=== PATIENT | male | born 1950 | race Caucasian/White ===

== ENCOUNTER 2024-04-05 14:50 | Inpatient (IN) | payer MEDICARE ==
[~2024-04-05] VITALS: Ht 190.5 cm; Wt 107.0 kg
[2024-04-05 15:35] LABS: BASOPHILS % (AUTO) 0.8 % (0.0-2.0); EOSINOPHILS # (AUTO) 0.2 K/uL (0.0-0.7); EOSINOPHILS % (AUTO) 4.1 % (0.0-6.0); HEMATOCRIT 31 % (39-51); HEMOGLOBIN 9.7 g/dL (13.5-17.5); LYMPHOCYTES # (AUTO) 0.5 K/uL (0.8-4.8); LYMPHOCYTES % (AUTO) 8.5 % (20.0-44.0); MEAN CORPUSCULAR HEMOGLOBIN 33 PG (26.0-33.0); MEAN CORPUSCULAR HGB CONC 32 g/dl (31.0-36.0); MEAN CORPUSCULAR VOLUME 104 fL (80-96); MONOCYTES # (AUTO) 0.6 K/uL (0.1-1.30); MONOCYTES % (AUTO) 11.3 % (2.0-12.0); NEUTROPHILS # (AUTO) 4.2 K/uL (1.8-8.9); NEUTROPHILS % (AUTO) 75.3 % (43.0-81.0); PLATELET COUNT (AUTO) 130 K/uL (150-450); RED BLOOD CELL COUNT(AUTO) 2.94 MIL/uL (4.5-6.0); WHITE BLOOD COUNT (AUTO) 5.5 K/uL (4.3-11.0)
[2024-04-05] MEDS ORDERED: GABA-532 PO (15:41)
[2024-04-05] MEDS ORDERED: LEVE100023 PO (15:41)
[2024-04-05] MEDS ORDERED: PANT40TA2 PO (15:41)
[2024-04-05] MEDS ORDERED: ASPI-1169 PO (15:41)
[2024-04-05] MEDS ORDERED: ESCI10TA PO (15:41)
[2024-04-05] MEDS ORDERED: GABA300C PO (15:41)
[2024-04-05] MEDS ORDERED: ACET-868 PO (15:41)
[2024-04-05] MEDS ORDERED: CLOP75TA15 PO (15:41)
[2024-04-05] MEDS ORDERED: FINA5TAB11 PO (15:41)
[2024-04-05] MEDS ORDERED: TAMS-12 PO (15:41)
[2024-04-05] MEDS ORDERED: ATOR80TA PO (15:41)
[2024-04-05] MEDS ORDERED: IRBE300T19 PO (15:41)
[2024-04-05 15:42] LABS: CALCIUM, SERUM 8.2 mg/dL (8.5-10.1); CARBON DIOXIDE 19 mmol/L (21-32); CHLORIDE 107 mmol/L (98-107); CREATININE 4.3 mg/dL (0.6-1.3); GLUCOSE 129 mg/dL (74-106); POTASSIUM 5.1 mmol/L (3.5-5.1); SODIUM SERUM 139 mmol/L (136-145); UREA NITROGEN, BLOOD 52 mg/dL (7-18)
[2024-04-05 15:43] LABS: SERUM AMMONIA 24 umol/L (11-32)
[2024-04-05 15:57] LABS: ALANINE AMINOTRANSFERASE 343 U/L (12-78); ALBUMIN 2.5 g/dL (3.4-5.0); ASPARTATE AMINOTRANSFERASE 807 U/L (15-37); BILIRUBIN,DIRECT 2.3 mg/dL (0.0-0.2); BILIRUBIN,TOTAL 2.9 mg/dL (0.2-1.0); TOTAL PROTEIN, SERUM 7.5 g/dL (6.4-8.2)
[2024-04-05 15:59] LABS: ALKALINE PHOSPHATASE 1813 U/L (46-116)
[2024-04-05] MEDS ORDERED: ONDANSETRON HCL/PF 4 MG/2 ML VIAL IVP PRN (23:30)
[2024-04-05] MEDS ORDERED: Z GUARD REMEDY 4 OZ OINT TP PRN (23:30)
[2024-04-05] MEDS ORDERED: ACETAMINOPHEN 325 MG TABLET PO PRN (23:30)
[2024-04-05] MEDS ORDERED: MAG HYDROX/AL HYDROX/SIMETH 30 ML UDC PO PRN (23:30)
[2024-04-05] MEDS ORDERED: MAGNESIUM HYDROXIDE 30 ML UDC PO PRN (23:30)
[2024-04-06 00:32] LABS: APPEARANCE,URINE CLEAR (CLEAR); BILIRUBIN,URINE NEGATIVE (NEGATIVE); BLOOD, URINE 3+ Ery/uL (NEGATIVE); COLOR,URINE YELLOW (YELLOW); KETONES,URINE NEGATIVE (NEGATIVE); LEUKOCYTE ESTERASE ,URINE NEGATIVE (NEGATIVE); NITRITE, URINE NEGATIVE (NEGATIVE); PROTEIN,URINE 2+ mg/dl (NEGATIVE); UGLUCOSE 1+ mg/dL (NEGATIVE)
[2024-04-06 00:59] LABS: ADD URINE CULTURE NO; BACTERIA,URINE None seen /HPF (None Seen); MUCUS,URINE Few /LPF (None Seen); RBC,URINE NONE SEEN /HPF (0-2); SQUAMOUS EPITHELIAL CELL,UR None Seen /HPF (None Seen); WBC,URINE NONE SEEN /HPF (0-3)
[2024-04-06 01:00] VITALS: BP 132/58; TEMP 98.6; O2SAT 96; O2SAT 97
[2024-04-06] MEDS: LEVETIRACETAM (500MG) 1,000 MG in IV NS 0.9% 90 ML IV ONE (01:05)
[2024-04-06] MEDS ORDERED: LEVETIRACETAM (500MG) 500 MG/5 ML VIAL IV ONE (01:52)
[2024-04-06 06:00] VITALS: BP 112/63; TEMP 97.8; O2SAT 97
[2024-04-06 06:34] LABS: BASOPHILS % (AUTO) 0.4 % (0.0-2.0); EOSINOPHILS # (AUTO) 0.2 K/uL (0.0-0.7); EOSINOPHILS % (AUTO) 3.2 % (0.0-6.0); HEMATOCRIT 30 % (39-51); HEMOGLOBIN 9.1 g/dL (13.5-17.5); LYMPHOCYTES # (AUTO) 0.5 K/uL (0.8-4.8); LYMPHOCYTES % (AUTO) 7.8 % (20.0-44.0); MEAN CORPUSCULAR HEMOGLOBIN 33 PG (26.0-33.0); MEAN CORPUSCULAR HGB CONC 30 g/dl (31.0-36.0); MEAN CORPUSCULAR VOLUME 107 fL (80-96); MONOCYTES # (AUTO) 0.8 K/uL (0.1-1.30); MONOCYTES % (AUTO) 13.5 % (2.0-12.0); NEUTROPHILS # (AUTO) 4.5 K/uL (1.8-8.9); NEUTROPHILS % (AUTO) 75.1 % (43.0-81.0); PLATELET COUNT (AUTO) 131 K/uL (150-450); RED BLOOD CELL COUNT(AUTO) 2.79 MIL/uL (4.5-6.0); RED CELL DISTRIBUTION WIDTH 18.6 % (11.5-15.0); WHITE BLOOD COUNT (AUTO) 5.9 K/uL (4.3-11.0)
[2024-04-06 07:36] LABS: ALANINE AMINOTRANSFERASE 307 U/L (12-78); ALBUMIN 2.3 g/dL (3.4-5.0); ASPARTATE AMINOTRANSFERASE 770 U/L (15-37); BILIRUBIN,TOTAL 3.5 mg/dL (0.2-1.0); CALCIUM, SERUM 8.3 mg/dL (8.5-10.1); CARBON DIOXIDE 14 mmol/L (21-32); CHLORIDE 109 mmol/L (98-107); CREATININE 4.6 mg/dL (0.6-1.3); GLUCOSE 93 mg/dL (74-106); MAGNESIUM 2.6 mg/dL (1.8-2.4); PHOSPHORUS 6.6 mg/dL (2.5-4.9); SODIUM SERUM 138 mmol/L (136-145); TOTAL PROTEIN, SERUM 6.6 g/dL (6.4-8.2); UREA NITROGEN, BLOOD 62 mg/dL (7-18)
[2024-04-06 08:13] LABS: ALKALINE PHOSPHATASE 1844 U/L (46-116)
[2024-04-06 08:30] VITALS: BP 110/51; TEMP 97.9; O2SAT 97
[2024-04-06] MEDS: PANTOPRAZOLE 40 MG VIAL IV SCH (08:40)
[2024-04-06] MEDS: LEVETIRACETAM (500MG) 1,000 MG in IV NS 0.9% 90 ML IV SCH (08:48)
[2024-04-06] MEDS: Sodium Bicarbonate 100 MEQ in IV D5W 1,000 ML IV SCH (09:50)
[2024-04-06] MEDS: SEVELAMER CARBONATE 800 MG TABLET PO SCH (13:00)
[2024-04-06 16:00] VITALS: BP 116/61; TEMP 97.7; O2SAT 97
[2024-04-06 20:30] VITALS: BP 133/58; TEMP 98.2; O2SAT 93
== END 2024-04-06 20:58 | disposition short-term general hospital (02) | DRG 811 ==
LOC: ER 15:10 → MED 17:13
PROVIDERS: ATTEND Internal Medicine
DX: D53.9 Nutritional anemia, unspecified (principal); E43 Unspecified severe protein-calorie malnutrition; E87.20 Acidosis, unspecified; K80.51 Calculus of bile duct without cholangitis or cholecystitis with obstruction; N17.9 Acute kidney failure, unspecified; E11.40 Type 2 diabetes mellitus with diabetic neuropathy, unspecified; E11.22 Type 2 diabetes mellitus with diabetic chronic kidney disease; I12.9 Hypertensive chronic kidney disease with stage 1 through stage 4 chronic kidney disease, or unspecified chronic kidney disease; N18.9 Chronic kidney disease, unspecified; Z90.5 Acquired absence of kidney; Z90.49 Acquired absence of other specified parts of digestive tract; Z89.611 Acquired absence of right leg above knee; Z86.73 Personal history of transient ischemic attack (TIA), and cerebral infarction without residual deficits; Z91.040 Latex allergy status; Z79.899 Other long term (current) drug therapy; Z79.02 Long term (current) use of antithrombotics/antiplatelets; Z79.4 Long term (current) use of insulin; Z79.82 Long term (current) use of aspirin; D69.6 Thrombocytopenia, unspecified; E78.5 Hyperlipidemia, unspecified; E80.6 Other disorders of bilirubin metabolism; E88.09 Other disorders of plasma-protein metabolism, not elsewhere classified; M89.8X9 Other specified disorders of bone, unspecified site; G40.909 Epilepsy, unspecified, not intractable, without status epilepticus; E66.9 Obesity, unspecified; Z68.29 Body mass index [BMI] 29.0-29.9, adult; N40.0 Benign prostatic hyperplasia without lower urinary tract symptoms; E86.9 Volume depletion, unspecified; K76.0 Fatty (change of) liver, not elsewhere classified; R74.01 Elevation of levels of liver transaminase levels
CPT/HCPCS: 36415; 70450-TC; 71045-TC; 74181-TC; 76705-TC; 76770-TC; 80048-TC; 80053-TC; 80076-TC; 81001; 82140-TC; 83735-TC; 84100-TC; 85025-TC; 87081-TC; A4223; G0378; J1953; J2470; J7030; J7050; J7070

== ENCOUNTER 2024-10-08 12:08 | Inpatient (IN) | payer MEDICARE ==
[~2024-10-08] VITALS: Ht 188 cm; Wt 106.1 kg
[~2024-10-08 12:08] MED LIST: ACET-868 PO; ASPI-1169 PO; ATOR80TA PO; CLOP75TA15 PO; ESCI10TA PO; FINA5TAB11 PO; GABA-532 PO; GABA300C PO; IRBE300T19 PO; LEVE100023 PO; PANT40TA2 PO; TAMS-12 PO
[2024-10-08] MEDS ORDERED: ONDANSETRON HCL/PF 4 MG/2 ML VIAL IVP PRN (12:30)
[2024-10-08] MEDS ORDERED: hydrALAZINE HCL IV 20 MG VIAL IV PRN (12:30)
[2024-10-08] MEDS ORDERED: ALBUTEROL FS 2.5 MG/0.5 ML VIAL.NEB NEB PRN (12:30)
[2024-10-08 12:51] LABS: BASOPHILS # (AUTO) 0.1 K/uL (0.0-0.2); BASOPHILS % (AUTO) 0.6 % (0.0-2.0); EOSINOPHILS # (AUTO) 0.2 K/uL (0.0-0.7); EOSINOPHILS % (AUTO) 2.4 % (0.0-6.0); HEMATOCRIT 31 % (39-51); HEMOGLOBIN 10.6 g/dL (13.5-17.5); LYMPHOCYTES # (AUTO) 0.6 K/uL (0.8-4.8); MEAN CORPUSCULAR HEMOGLOBIN 35 PG (26.0-33.0); MEAN CORPUSCULAR HGB CONC 35 g/dl (31.0-36.0); MEAN CORPUSCULAR VOLUME 102 fL (80-96); MONOCYTES # (AUTO) 0.8 K/uL (0.1-1.30); MONOCYTES % (AUTO) 10.6 % (2.0-12.0); NEUTROPHILS # (AUTO) 6.1 K/uL (1.8-8.9); NEUTROPHILS % (AUTO) 78.4 % (43.0-81.0); PLATELET COUNT (AUTO) 177 K/uL (150-450); RED BLOOD CELL COUNT(AUTO) 3.02 MIL/uL (4.5-6.0); RED CELL DISTRIBUTION WIDTH 18.1 % (11.5-15.0); WHITE BLOOD COUNT (AUTO) 7.8 K/uL (4.3-11.0)
[2024-10-08] MEDS: PIPERACILLIN /TAZOBACTAM 3.375 G in IV D5W 50 ML IV ONE (13:00)
[2024-10-08] MEDS ORDERED: GABAPENTIN 300 MG CAPSULE PO SCH (13:00)
[2024-10-08 13:10] LABS: CALCIUM, SERUM 8.5 mg/dL (8.5-10.1); CREATININE 5.8 mg/dL (0.6-1.3); POTASSIUM 3.5 mmol/L (3.5-5.1)
[2024-10-08 13:16] LABS: ALBUMIN 2.5 g/dL (3.4-5.0); BILIRUBIN,DIRECT 0.4 mg/dL (0.0-0.2); BILIRUBIN,TOTAL 0.8 mg/dL (0.2-1.0); TOTAL PROTEIN, SERUM 6.9 g/dL (6.4-8.2)
[2024-10-08 13:18] LABS: LACTIC ACID 1.2 mmol/L (0.4-2.0)
[2024-10-08 15:00] LABS: INR 1.09 (0.91-1.10); PARTIAL THROMBOPLASTIN TIME 30.8 SEC (24.3-34.3); PROTHROMBIN TIME 11.5 SECS (9.2-11.1)
[2024-10-08 16:00] VITALS: BP 97/58; TEMP 97.9; O2SAT 96
[2024-10-08] MEDS: CEFEPIME 1 GM in IV D5W 50 ML IV SCH (16:07)
[2024-10-08] MEDS: VANCOMYCIN 1 GM in IV D5W 250ml IV ONE (16:07)
[2024-10-08] MEDS: LEVETIRACETAM (250 MG) 250 MG TABLET PO SCH (16:47)
[2024-10-08] MEDS: ASPIRIN 81 MG TAB.CHEW PO SCH (16:47)
[2024-10-08 20:00] VITALS: BP 96/56; TEMP 98.2; O2SAT 95
[2024-10-08] MEDS: HEPARIN SODIUM, PORCINE 5000 UNITS/1 ML VIAL SQ SCH (20:53)
[2024-10-08] MEDS: TAMSULOSIN 0.4 MG CAP.SR.24H PO SCH (21:03)
[2024-10-08] MEDS: ALBUMIN 25% 25 GM in PREMIX 1 EA IV PRN (21:28)
[2024-10-09] VITALS: BP 115/56; TEMP 97.7; O2SAT 96
[2024-10-09] MEDS: ACETAMINOPHEN 325 MG TABLET PO PRN (02:12)
[2024-10-09 04:00] VITALS: BP 94/59; TEMP 97.7; O2SAT 97
[2024-10-09 06:33] LABS: BASOPHILS % (AUTO) 0.4 % (0.0-2.0); EOSINOPHILS # (AUTO) 0.2 K/uL (0.0-0.7); EOSINOPHILS % (AUTO) 3.3 % (0.0-6.0); HEMATOCRIT 27 % (39-51); HEMOGLOBIN 9.2 g/dL (13.5-17.5); LYMPHOCYTES # (AUTO) 0.4 K/uL (0.8-4.8); LYMPHOCYTES % (AUTO) 5.8 % (20.0-44.0); MEAN CORPUSCULAR HEMOGLOBIN 36 PG (26.0-33.0); MEAN CORPUSCULAR HGB CONC 35 g/dl (31.0-36.0); MEAN CORPUSCULAR VOLUME 102 fL (80-96); MONOCYTES # (AUTO) 0.7 K/uL (0.1-1.30); MONOCYTES % (AUTO) 8.9 % (2.0-12.0); NEUTROPHILS % (AUTO) 81.6 % (43.0-81.0); PLATELET COUNT (AUTO) 174 K/uL (150-450); RED BLOOD CELL COUNT(AUTO) 2.59 MIL/uL (4.5-6.0); RED CELL DISTRIBUTION WIDTH 17.6 % (11.5-15.0); WHITE BLOOD COUNT (AUTO) 7.4 K/uL (4.3-11.0)
[2024-10-09 06:44] LABS: ALANINE AMINOTRANSFERASE 10 U/L (12-78); ALBUMIN 2.5 g/dL (3.4-5.0); ALKALINE PHOSPHATASE 94 U/L (46-116); ASPARTATE AMINOTRANSFERASE 12 U/L (15-37); BILIRUBIN,TOTAL 0.7 mg/dL (0.2-1.0); CALCIUM, SERUM 8.2 mg/dL (8.5-10.1); CARBON DIOXIDE 33 mmol/L (21-32); CHLORIDE 103 mmol/L (98-107); CREATININE 3.4 mg/dL (0.6-1.3); GLUCOSE 103 mg/dL (74-106); MAGNESIUM 1.9 mg/dL (1.8-2.4); PHOSPHORUS 2.6 mg/dL (2.5-4.9); POTASSIUM 3.3 mmol/L (3.5-5.1); SODIUM SERUM 142 mmol/L (136-145); TOTAL PROTEIN, SERUM 6.3 g/dL (6.4-8.2); UREA NITROGEN, BLOOD 16 mg/dL (7-18); VANCOMYCIN,TROUGH 11 ug/ml (10-20)
[2024-10-09 08:00] VITALS: BP 106/61; TEMP 97; O2SAT 97
[2024-10-09] MEDS: CLOPIDOGREL BISULFATE 75 MG TABLET PO SCH (08:22)
[2024-10-09] MEDS: FINASTERIDE (5 MG) 5 MG TABLET PO SCH (08:22)
[2024-10-09] MEDS: ATORVASTATIN 40 MG TABLET PO SCH (08:22)
[2024-10-09] MEDS: PANTOPRAZOLE 40 MG TABLET.DR PO SCH (08:22)
[2024-10-09] MEDS: ESCITALOPRAM OXALATE (10 MG) 10 MG TABLET PO SCH (08:23)
[2024-10-09] MEDS: LOSARTAN POTASSIUM 50 MG TABLET PO SCH (08:23)
[2024-10-09] MEDS ORDERED: POTASSIUM CHLORIDE 20 MEQ TAB.PRT.SR PO ONE (10:30)
[2024-10-09] MEDS: POTASSIUM CHLORIDE 20 MEQ TAB.PRT.SR PO ONE (11:07)
[2024-10-09] MEDS: VANCOMYCIN 500 MG in IV D5W 100ml IV ONE (11:47)
[2024-10-09 12:00] VITALS: BP 90/49; TEMP 97.3; O2SAT 97
[2024-10-09] MEDS ORDERED: VANCOMYCIN POST DIALYSIS 500MG IV PRN (15:00)
[2024-10-09 16:00] VITALS: BP 102/41; TEMP 98.1; O2SAT 97
[2024-10-09 16:49] LABS: THYROID STIMULATING HORMONE 1.42 uIU/mL (0.358-3.74)
[2024-10-09 20:00] VITALS: BP 111/60; TEMP 98.1; O2SAT 97
[2024-10-10 03:09] LABS: HEPATITIS B SURFACE AB (QUAL) Non Reactive (.)
[2024-10-10 04:34] VITALS: BP 105/58; TEMP 97.5; O2SAT 97
[2024-10-10 06:39] LABS: INR 1.08 (0.91-1.10); PROTHROMBIN TIME 11.4 SECS (9.2-11.1)
[2024-10-10 06:59] LABS: CALCIUM, SERUM 8.2 mg/dL (8.5-10.1); CARBON DIOXIDE 30 mmol/L (21-32); CHLORIDE 106 mmol/L (98-107); GLUCOSE 82 mg/dL (74-106); POTASSIUM 3.7 mmol/L (3.5-5.1); SODIUM SERUM 143 mmol/L (136-145); UREA NITROGEN, BLOOD 28 mg/dL (7-18)
[2024-10-10 08:00] VITALS: BP 118/54; TEMP 97.9; O2SAT 97
[2024-10-10 08:09] LABS: CARBOHYDRATE AG 19-9 20 U/mL (0-35); CARCINOEMBRYONIC ANTIGEN (CEA) 3.2 ng/mL (0.0-4.7); FOLIC ACID 16.8 ng/mL (>3.0)
[2024-10-10 12:00] VITALS: BP 118/54; TEMP 97.9; O2SAT 97
[2024-10-10 12:11] LABS: IMMUNOGLOBULIN A, SERUM 353 mg/dL (61-437); IMMUNOGLOBULIN G, SERUM 1335 mg/dL (603-1613); IMMUNOGLOBULIN M, SERUM 40 mg/dL (15-143)
[2024-10-10] MEDS ORDERED: IOHEXOL-300 100 ML VIAL IV ONE (14:28)
[2024-10-10] MEDS ORDERED: IV NS 0.9% 250 ML IV ONE (14:28)
[2024-10-10 16:00] VITALS: BP 123/66; TEMP 97.5; O2SAT 98
[2024-10-10 20:00] VITALS: BP 90/51; TEMP 98.1; O2SAT 98
[2024-10-10 20:07] LABS: FREE KAPPA LT CHAINS SERUM 141.5 mg/L (3.3-19.4); FREE LAMBDA LT CHAIN SERUM 151.5 mg/L (5.7-26.3); KAPPA/LAMBDA RATIO SERUM 0.93 (0.26-1.65)
[2024-10-10] MEDS ORDERED: ALBUMIN 25% 100 ML IV ONE (21:24)
[2024-10-10] MEDS: VANCOMYCIN POST DIALYSIS 500MG IV PRN (23:30)
[2024-10-11 03:08] LABS: *THYROGLOBULIN <1.0 IU/mL (0.0-0.9); THYROGLOBULIN BY IMA 33.6 ng/mL (1.4-29.2)
[2024-10-11 04:00] VITALS: BP 102/54; TEMP 97.9; O2SAT 97
[2024-10-11 06:27] LABS: BASOPHILS % (AUTO) 0.5 % (0.0-2.0); EOSINOPHILS # (AUTO) 0.2 K/uL (0.0-0.7); EOSINOPHILS % (AUTO) 2.9 % (0.0-6.0); HEMATOCRIT 27 % (39-51); LYMPHOCYTES # (AUTO) 0.7 K/uL (0.8-4.8); LYMPHOCYTES % (AUTO) 13.4 % (20.0-44.0); MEAN CORPUSCULAR HEMOGLOBIN 35 PG (26.0-33.0); MEAN CORPUSCULAR HGB CONC 34 g/dl (31.0-36.0); MEAN CORPUSCULAR VOLUME 102 fL (80-96); MONOCYTES # (AUTO) 0.5 K/uL (0.1-1.30); MONOCYTES % (AUTO) 8.7 % (2.0-12.0); NEUTROPHILS % (AUTO) 74.5 % (43.0-81.0); PLATELET COUNT (AUTO) 154 K/uL (150-450); RED BLOOD CELL COUNT(AUTO) 2.59 MIL/uL (4.5-6.0); RED CELL DISTRIBUTION WIDTH 17.5 % (11.5-15.0); WHITE BLOOD COUNT (AUTO) 5.4 K/uL (4.3-11.0)
[2024-10-11 07:16] LABS: CALCIUM, SERUM 8.6 mg/dL (8.5-10.1); CARBON DIOXIDE 33 mmol/L (21-32); CHLORIDE 104 mmol/L (98-107); CREATININE 3.2 mg/dL (0.6-1.3); GLUCOSE 86 mg/dL (74-106); POTASSIUM 3.7 mmol/L (3.5-5.1); SODIUM SERUM 142 mmol/L (136-145); UREA NITROGEN, BLOOD 16 mg/dL (7-18)
[2024-10-11 08:01] VITALS: BP 126/65; TEMP 98; O2SAT 97
[2024-10-11 12:00] VITALS: BP 126/65; TEMP 98; O2SAT 97
[2024-10-11 20:00] VITALS: BP 134/70; TEMP 98.6; O2SAT 97
[2024-10-12 04:00] VITALS: BP 123/64; TEMP 97; O2SAT 97
[2024-10-12 10:13] LABS: BASOPHILS % (AUTO) 0.6 % (0.0-2.0); EOSINOPHILS # (AUTO) 0.1 K/uL (0.0-0.7); EOSINOPHILS % (AUTO) 2.6 % (0.0-6.0); HEMATOCRIT 27 % (39-51); HEMOGLOBIN 9.2 g/dL (13.5-17.5); LYMPHOCYTES # (AUTO) 0.7 K/uL (0.8-4.8); LYMPHOCYTES % (AUTO) 13.9 % (20.0-44.0); MEAN CORPUSCULAR HEMOGLOBIN 35 PG (26.0-33.0); MEAN CORPUSCULAR HGB CONC 34 g/dl (31.0-36.0); MEAN CORPUSCULAR VOLUME 103 fL (80-96); MONOCYTES # (AUTO) 0.3 K/uL (0.1-1.30); MONOCYTES % (AUTO) 7.3 % (2.0-12.0); NEUTROPHILS # (AUTO) 3.6 K/uL (1.8-8.9); NEUTROPHILS % (AUTO) 75.6 % (43.0-81.0); PLATELET COUNT (AUTO) 139 K/uL (150-450); RED BLOOD CELL COUNT(AUTO) 2.65 MIL/uL (4.5-6.0); RED CELL DISTRIBUTION WIDTH 17.1 % (11.5-15.0); WHITE BLOOD COUNT (AUTO) 4.7 K/uL (4.3-11.0)
[2024-10-12 10:54] LABS: CALCIUM, SERUM 8.6 mg/dL (8.5-10.1); CREATININE 4.4 mg/dL (0.6-1.3); POTASSIUM 3.4 mmol/L (3.5-5.1)
[2024-10-12 11:14] LABS: FREE PSA 0.13 ng/mL (0.00-45); PROSTATE SPECIFIC ANTIGEN SCR 0.79 ng/mL (0.00-4.00)
[2024-10-12 12:46] VITALS: BP 120/63; TEMP 97.7; O2SAT 95
[2024-10-12 16:00] VITALS: BP 117/67; TEMP 97.9; O2SAT 96
[2024-10-12] MEDS: POTASSIUM CHLORIDE 20 MEQ TAB.PRT.SR PO ONE (18:53)
[2024-10-12 20:00] VITALS: BP 117/63; TEMP 97.8; TEMP 98.2; O2SAT 94; O2SAT 97
[2024-10-13 04:00] VITALS: BP 133/64; TEMP 98.4; O2SAT 96
[2024-10-13] MEDS: MORPHINE SULFATE INJ 2 MG/ML DISP.SYRIN IV PRN (06:20)
[2024-10-13 06:48] LABS: BASOPHILS % (AUTO) 0.7 % (0.0-2.0); EOSINOPHILS # (AUTO) 0.2 K/uL (0.0-0.7); EOSINOPHILS % (AUTO) 2.9 % (0.0-6.0); HEMATOCRIT 28 % (39-51); HEMOGLOBIN 9.8 g/dL (13.5-17.5); LYMPHOCYTES # (AUTO) 0.8 K/uL (0.8-4.8); LYMPHOCYTES % (AUTO) 13.9 % (20.0-44.0); MEAN CORPUSCULAR HEMOGLOBIN 36 PG (26.0-33.0); MEAN CORPUSCULAR HGB CONC 35 g/dl (31.0-36.0); MEAN CORPUSCULAR VOLUME 101 fL (80-96); MONOCYTES # (AUTO) 0.5 K/uL (0.1-1.30); MONOCYTES % (AUTO) 8.7 % (2.0-12.0); NEUTROPHILS # (AUTO) 4.2 K/uL (1.8-8.9); NEUTROPHILS % (AUTO) 73.8 % (43.0-81.0); PLATELET COUNT (AUTO) 134 K/uL (150-450); RED BLOOD CELL COUNT(AUTO) 2.75 MIL/uL (4.5-6.0); RED CELL DISTRIBUTION WIDTH 16.7 % (11.5-15.0); WHITE BLOOD COUNT (AUTO) 5.7 K/uL (4.3-11.0)
[2024-10-13 06:51] LABS: CREATININE 2.9 mg/dL (0.6-1.3)
[2024-10-13 07:04] LABS: D-DIMER 2.23 mg/L(FEU (0.17-0.50); INR 1.08 (0.91-1.10); PARTIAL THROMBOPLASTIN TIME 28.3 SEC (24.3-34.3); PROTHROMBIN TIME 11.4 SECS (9.2-11.1)
[2024-10-13 12:00] VITALS: BP 101/60; TEMP 97.7; O2SAT 97
[2024-10-13 20:00] VITALS: BP 103/50; TEMP 97.5; O2SAT 100
[2024-10-14 04:00] VITALS: BP 107/68; TEMP 97.7; O2SAT 99
[2024-10-14 06:46] LABS: POTASSIUM 4.7 mmol/L (3.5-5.1)
[2024-10-14 06:52] LABS: CALCIUM, SERUM 9.4 mg/dL (8.5-10.1)
[2024-10-14 08:00] VITALS: BP 102/63; TEMP 97.3; O2SAT 99
[2024-10-14 11:08] LABS: BASOPHILS % (AUTO) 0.8 % (0.0-2.0); EOSINOPHILS # (AUTO) 0.2 K/uL (0.0-0.7); EOSINOPHILS % (AUTO) 3.1 % (0.0-6.0); HEMATOCRIT 27 % (39-51); HEMOGLOBIN 9.6 g/dL (13.5-17.5); LYMPHOCYTES # (AUTO) 0.9 K/uL (0.8-4.8); LYMPHOCYTES % (AUTO) 17.9 % (20.0-44.0); MEAN CORPUSCULAR HEMOGLOBIN 36 PG (26.0-33.0); MEAN CORPUSCULAR HGB CONC 35 g/dl (31.0-36.0); MEAN CORPUSCULAR VOLUME 103 fL (80-96); MONOCYTES # (AUTO) 0.5 K/uL (0.1-1.30); MONOCYTES % (AUTO) 10.3 % (2.0-12.0); NEUTROPHILS # (AUTO) 3.4 K/uL (1.8-8.9); NEUTROPHILS % (AUTO) 67.9 % (43.0-81.0); PLATELET COUNT (AUTO) 115 K/uL (150-450); RED BLOOD CELL COUNT(AUTO) 2.64 MIL/uL (4.5-6.0); RED CELL DISTRIBUTION WIDTH 17.2 % (11.5-15.0)
[2024-10-14 16:00] VITALS: BP 90/59; TEMP 97; O2SAT 99
[2024-10-14 20:26] VITALS: BP 120/56; TEMP 97.9; O2SAT 100
[2024-10-15 04:00] VITALS: BP 104/66; TEMP 97.5; O2SAT 94
[2024-10-15 07:10] LABS: *SPE A/G RATIO 0.9 (0.7-1.7); *SPE ALBUMIN 2.9 g/dL (2.9-4.4); *SPE ALPHA-1-GLOBULIN 0.3 g/dL (0.0-0.4); *SPE ALPHA-2-GLOBULIN 0.6 g/dL (0.4-1.0); *SPE BETA GLOBULIN 0.8 g/dL (0.7-1.3); *SPE GLOBULIN, TOTAL 3.1 g/dL (2.2-3.9); *SPE M-SPIKE Not Observed g/dL (Not Observed); *SPEGAMMA GLOBULIN 1.3 g/dL (0.4-1.8)
[2024-10-15 08:00] VITALS: BP 157/87; TEMP 98.1
[2024-10-15 10:57] LABS: BASOPHILS % (AUTO) 0.6 % (0.0-2.0); EOSINOPHILS # (AUTO) 0.1 K/uL (0.0-0.7); EOSINOPHILS % (AUTO) 2.5 % (0.0-6.0); HEMATOCRIT 30 % (39-51); HEMOGLOBIN 10.1 g/dL (13.5-17.5); LYMPHOCYTES # (AUTO) 0.7 K/uL (0.8-4.8); LYMPHOCYTES % (AUTO) 13.4 % (20.0-44.0); MEAN CORPUSCULAR HEMOGLOBIN 35 PG (26.0-33.0); MEAN CORPUSCULAR HGB CONC 34 g/dl (31.0-36.0); MEAN CORPUSCULAR VOLUME 102 fL (80-96); MONOCYTES # (AUTO) 0.6 K/uL (0.1-1.30); MONOCYTES % (AUTO) 10.3 % (2.0-12.0); NEUTROPHILS % (AUTO) 73.2 % (43.0-81.0); PLATELET COUNT (AUTO) 112 K/uL (150-450); RED BLOOD CELL COUNT(AUTO) 2.89 MIL/uL (4.5-6.0); WHITE BLOOD COUNT (AUTO) 5.4 K/uL (4.3-11.0)
[2024-10-15 15:20] VITALS: BP 133/61; TEMP 98.6; O2SAT 97
== END 2024-10-15 17:21 | disposition hospice, inpatient (51) | DRG 193 ==
LOC: ER 12:10 → TELE1 13:48 → MEDSG1 10-09 11:24
PROVIDERS: ADMIT Internal Medicine; ATTEND Internal Medicine
PROC: 5A1D70Z Performance of Urinary Filtration, Intermittent, Less than 6 Hours Per Day (ICD-10-PCS; principal; 2024-10-08)
DX: J15.9 Unspecified bacterial pneumonia (principal); N18.6 End stage renal disease; I12.0 Hypertensive chronic kidney disease with stage 5 chronic kidney disease or end stage renal disease; C64.1 Malignant neoplasm of right kidney, except renal pelvis; C78.1 Secondary malignant neoplasm of mediastinum; C77.2 Secondary and unspecified malignant neoplasm of intra-abdominal lymph nodes; R07.81 Pleurodynia; Z20.822 Contact with and (suspected) exposure to COVID-19; E78.5 Hyperlipidemia, unspecified; Z99.2 Dependence on renal dialysis; Z66 Do not resuscitate; Z90.5 Acquired absence of kidney; Z90.49 Acquired absence of other specified parts of digestive tract; Z89.611 Acquired absence of right leg above knee; D50.9 Iron deficiency anemia, unspecified; Z89.511 Acquired absence of right leg below knee; Z86.73 Personal history of transient ischemic attack (TIA), and cerebral infarction without residual deficits; Z85.528 Personal history of other malignant neoplasm of kidney; Z79.899 Other long term (current) drug therapy; Z79.82 Long term (current) use of aspirin; Z79.02 Long term (current) use of antithrombotics/antiplatelets; Z91.040 Latex allergy status; M89.8X9 Other specified disorders of bone, unspecified site; I25.10 Atherosclerotic heart disease of native coronary artery without angina pectoris; N40.0 Benign prostatic hyperplasia without lower urinary tract symptoms; Y95 Nosocomial condition; E88.09 Other disorders of plasma-protein metabolism, not elsewhere classified; Z96.89 Presence of other specified functional implants; G40.909 Epilepsy, unspecified, not intractable, without status epilepticus; E04.2 Nontoxic multinodular goiter; E27.8 Other specified disorders of adrenal gland; K86.9 Disease of pancreas, unspecified; D73.9 Disease of spleen, unspecified; F32.A Depression, unspecified; N32.0 Bladder-neck obstruction; E87.6 Hypokalemia
CPT/HCPCS: 36415; 71045-TC; 71250-TC; 71260-TC; 76536-TC; 80048-TC; 80053-TC; 80076-TC; 80202-TC; 82378; 82607-TC; 82728-TC; 82784; 83540-TC; 83605-TC; 83615-TC; 83735-TC; 84100-TC; 84153-TC; 84154-TC; 84155; 84165; 84443-TC; 84484-TC; 85025-TC; 85396; 85610-TC; 85730-TC; 86301; 86334; 86706; 87040-TC; 87081-TC; 87340; 90935-TC; 93307-TC; 97110-TC; 97116-TC; 97530-TC; A4216; A4223; A6213; G0378; J0692; J1644; J2270; J2543; J3370; J7030; J7050; J7060; P9047; Q9967